=== PATIENT | female | born 1995 | race Caucasian/White ===

== ENCOUNTER 2018-07-31 08:14 | Emergency (ER) | payer OTHER ==
[~2018-07-31] VITALS: Ht 160 cm; Wt 52.7 kg
[2018-07-31] MEDS ORDERED: MAALOX/LIDOCAINE/NYSTATIN SUSP 5 ML ORAL.SYG PO ONE (09:45)
[2018-07-31] MEDS ORDERED: DEXAMETHASONE 4 MG TABLET PO ONE (09:45)
[2018-07-31] MEDS ORDERED: IBUPROFEN 800 MG TABLET PO ONE (09:45)
[2018-07-31] MEDS ORDERED: PENICILLIN G BENZATHINE LA 1,200,000 UNITS/2 ML SYRINGE IM ONE (12:00)
[2018-07-31 12:12] VITALS: BP 118/69
== END 2018-07-31 12:15 | disposition home or self-care (01) ==
LOC: EMS 08:17
DX: J02.0 Streptococcal pharyngitis (principal)
CPT/HCPCS: 87430; 96372; 99284; J0561; J8540